=== PATIENT | male | born 2005 | race Caucasian/White ===

== ENCOUNTER 2024-05-28 13:30 | Inpatient (IN) ==
[2024-05-28] MEDS: SODIUM CHLORIDE 0.9% 1,000 ML IV ONE (14:28)
--- NOTE | 2024-05-28 14:28 | Emergency Department Note ---
Impression & Plan Abscess, periappendiceal, Appendicitis, Abdominal pain, RLQ ED Provider Note NAME: KAYDEN TALAVERA AGE: 19 SEX: M : 2005 ARRIVES VIA: Walk-In INFORMANT: Patient, parents ED PROVIDER(S): Param Grande MD CHIEF COMPLAINT: Abdominal pain, abnormal outpatient CAT scan, outpatient referral MEDICAL DECISION MAKING: Patient presents due to concern for right lower abdominal pain with outpatient CT scan concerning for ruptured appendicitis and periappendiceal abscess. IV was established and blood work was obtained. CT had been obtained at [facility] prior to arrival. I did speak with the community service organization director in order to obtain the imaging as well as the report. I did speak with on-call general surgery Dr. Azar. Patient was ordered IV Zosyn blood cultures and IV fluids. Patient with a white count of 15 with a normal H&H and platelet count. The patient's kidney function is unremarkable. Bilirubin is 6.7. LFTs unremarkable Pro-Tanner not elevated. After further discussion with Dr. Azar he will be admitted for antibiotic treatment does not believe the patient would require percutaneous drainage. Appendiceal abscess given how small it is currently. Patient was admitted to the general surgery service. Discussion w/ other healthcare providers: Dr. Azar general surgery Prior /Outside records reviewed: I reviewed the patient's outpatient CT report which showed ruptured appendicitis with periappendiceal abscess Differential diagnosis: Appendicitis, testicular torsion, UTI, diverticulitis, obstruction, renal colic, mesenteric adenitis, enteririts, PUD, pancreatitis, biliary pathology, hernia, volvulus, constipation, as well as other pathologies were considered. Diagnostics, as interpreted by me: ECG: None Cardiac monitoring: An order was placed for continuous cardiac monitoring. The monitor shows a rate of 92 with sinus rhythm. Patient was placed on pulse oximetry Medical decision rules: None Imaging studies: I informally interpreted the patient's CT abdomen pelvis does show periappendiceal abscess with formal report to follow. HPI: Patient presents due to concern for abdominal pain and an outpatient CT that showed concern for acute appendicitis. The patient states that his symptoms began on Saturday or very mild in nature in the right lower quadrant but seem to worsen yesterday. The patient was seen by Dr. Carrera as an outpatient and referred for an outpatient CAT scan. The patient reportedly was called with the results but told not to come to [facility] as they did not have a surgeon present on campus. Patient was told that he had acute appendicitis. Patient denies any fevers or chills no falls or trauma. 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 No reported blood in the urine or stool. No nausea vomiting. Patient states that he has taken some Tylenol which she took while at the physician's office this morning. He had some mild improvement. PAST MEDICAL HISTORY: No pertinent past medical history PAST SURGICAL HISTORY: No pertinent past surgical history SOCIAL HISTORY: Denies alcohol tobacco or drug use. HOME MEDICATIONS: See Below ALLERGIES: See Below VITALS: See Below PHYSICAL EXAMINATION: GENERAL: NAD, non-toxic. EYE EXAM: Icteric conjunctiva bilaterally. PERRL, no anisocoria and EOM's grossly intact w/o pain. OROPHARYNX: Moist mucus membranes, grossly normal dentition. NECK: Trachea midline, no stridor. Supple, no nuchal rigidity, no adenopathy, non-tender. No signs of meningismus. FROM of the neck with good chin to chest and neck extension. LUNGS: Clear to auscultation. Normal chest wall mechanics. HEART: NSR, no MRG. ABDOMEN: Abdomen soft, right lower quadrant pain without left-sided pain, negative obturators, positive psoas, no masses, no rebound or guarding. BACK: No CVA TTP. SKIN: No rashes and no bruising. UPPER EXTREMITIES: Upper extremities are grossly normal. LOWER EXTREMITIES: Grossly normal, no edema. NEURO EXAM: A&O x3, cranial nerves II-XII grossly intact, normal speech, moves all 4 extremities. Past Med/Surg History Problem List (Updated 05/29/24 @ 08:39 by Param Grande MD) Abdominal pain, RLQ (Acute) Abscess, periappendiceal (Acute) Appendicitis (Acute) Social History Smoking Status: Never smoker Hx Alcohol Use: No Hx Substance Use: No Preferred Language: Swedish Communication Ability: Effective Economic History Teacher Required: No Beliefs That Will Affect Care: None Current Living Situation: Family Feels Safe at Home: Yes Safety Concerns: Feels Safe At This Time Assistive Devices: None Allergies Allergies Allergy/AdvReac Type Severity Reaction Status Date / Time No Known Allergies Allergy Unverified 05/28/24 15:20 Home Meds Home Medications Medication Instructions Recorded Confirmed No Known Home Medications 05/28/24 05/28/24 Results & Data (ED) Vital Signs Vital Signs - 24 hr 05/28/24 13:40 05/28/24 13:47 05/28/24 13:50 Temperature 37.4 C Temperature Source Temporal Artery Scan Pulse Rate 113 H 100 H Pulse Rate [Apical] Pulse Rate from SpO2 Sensor Pulse Rhythm Respiratory Rate 18 Respiratory Effort / Characteristics Non-Labored Spontaneous Respiratory Depth Normal Respiratory Pattern Blood Pressure 146/79 H 148/74 H Blood Pressure [Left Arm] Blood Pressure Mean 101 99 Blood Pressure Mean [Left Arm] Blood Pressure Position Sitting Pulse Oximetry 98 Oxygen Delivery Method Room Air Sepsis Recent Fever Within 48 Hours No Sepsis New/Unexplained Change in Mental Status No Sepsis Action Taken by Nursing No Action Required 05/28/24 13:55 05/28/24 14:00 05/28/24 14:12 Temperature Temperature Source Pulse Rate 106 H 94 H Pulse Rate [Apical] 98 H Pulse Rate from SpO2 Sensor 105 H 93 H Pulse Rhythm Respiratory Rate 20 18 14 Respiratory Effort / Characteristics Non-Labored Spontaneous Respiratory Depth Normal Respiratory Pattern Regular Blood Pressure 100/79 Blood Pressure [Left Arm] 148/74 H Blood Pressure Mean 86 Blood Pressure Mean [Left Arm] 98 Blood Pressure Position Pulse Oximetry 98 99 97 Oxygen Delivery Method Room Air Sepsis Recent Fever Within 48 Hours Sepsis New/Unexplained Change in Mental Status Sepsis Action Taken by Nursing 05/28/24 14:19 05/28/24 14:21 05/28/24 14:34 Temperature Temperature Source Pulse Rate 98 H 95 H Pulse Rate [Apical] Pulse Rate from SpO2 Sensor 95 H Pulse Rhythm Regular Respiratory Rate 20 14 Respiratory Effort / Characteristics Respiratory Depth Respiratory Pattern Blood Pressure 134/72 Blood Pressure [Left Arm] Blood Pressure Mean 93 Blood Pressure Mean [Left Arm] Blood Pressure Position Pulse Oximetry 98 98 Oxygen Delivery Method Room Air Sepsis Recent Fever Within 48 Hours Sepsis New/Unexplained Change in Mental Status Sepsis Action Taken by Nursing 05/28/24 14:36 05/28/24 14:45 05/28/24 14:51 Temperature Temperature Source Pulse Rate 91 H 92 H 92 H Pulse Rate [Apical] Pulse Rate from SpO2 Sensor Pulse Rhythm Respiratory Rate 16 15 18 Respiratory Effort / Characteristics Respiratory Depth Respiratory Pattern Blood Pressure Blood Pressure [Left Arm] Blood Pressure Mean Blood Pressure Mean [Left Arm] Blood Pressure Position Pulse Oximetry Oxygen Delivery Method Sepsis Recent Fever Within 48 Hours Sepsis New/Unexplained Change in Mental Status Sepsis Action Taken by Nursing 05/28/24 15:00 05/28/24 15:00 05/28/24 15:00 Temperature Temperature Source Pulse Rate 91 H Pulse Rate [Apical] Pulse Rate from SpO2 Sensor Pulse Rhythm Respiratory Rate 15 Respiratory Effort / Characteristics Respiratory Depth Respiratory Pattern Blood Pressure 122/68 122/68 Blood Pressure [Left Arm] Blood Pressure Mean 87 87 Blood Pressure Mean [Left Arm] Blood Pressure Position Pulse Oximetry 98 Oxygen Delivery Method Sepsis Recent Fever Within 48 Hours Sepsis New/Unexplained Change in Mental Status Sepsis Action Taken by Nursing 05/28/24 15:00 05/28/24 15:30 05/28/24 15:30 Temperature Temperature Source Pulse Rate 87 Pulse Rate [Apical] Pulse Rate from SpO2 Sensor Pulse Rhythm Respiratory Rate 15 Respiratory Effort / Characteristics Respiratory Depth Respiratory Pattern Blood Pressure 122/68 126/69 Blood Pressure [Left Arm] Blood Pressure Mean 87 89 Blood Pressure Mean [Left Arm] Blood Pressure Position Pulse Oximetry 97 Oxygen Delivery Method Sepsis Recent Fever Within 48 Hours Sepsis New/Unexplained Change in Mental Status Sepsis Action Taken by [facility] Medications Current Medication List: was personally reviewed by me Laboratory Data Attestation: I reviewed the patient's lab results. 05/29/24 05:44 05/29/24 05:44 Lab Results 05/28/24 Range/Units 13:52 WBC 15.60 H (4.8-10.8) K/ul RBC 5.60 (4.70-6.10) M/uL Hgb 15.9 (14.0-18.0) g/dl Hct 45.0 (42.0-52.0) % MCV 80.4 (80.0-100.0) fL MCH 28.4 (25.0-34.0) pg MCHC 35.3 (32.0-36.0) g/dL RDW Std Deviation 35.7 L (36.4-46.3) fL RDW Coeff of Martha 12.2 (11.5-14.5) % Plt Count 218 (130-400) K/uL MPV 9.2 L (9.4-12.4) fL Immature Gran % (Auto) 0.4 % Neut % (Auto) 86.3 % Lymph % (Auto) 5.4 % [place] % (Auto) 7.8 % Eos % (Auto) 0.0 % Baso % (Auto) 0.1 % Neut # (Auto) 13.45 H (1.40-6.50) K/uL Lymph # (Auto) 0.85 L (1.20-3.40) K/uL [place] # (Auto) 1.22 H (0.11-0.59) K/uL Eos # (Auto) 0.00 (0.00-0.50) K/uL Baso # (Auto) 0.01 (0.00-0.20) K/uL Immature Gran # (Auto) 0.07 (0.01-0.20) K/uL Sodium 132 L (136-145) mmol/L Potassium 4.1 (3.5-5.1) mmol/L Chloride 97 L (98-107) mmol/L Carbon Dioxide 26 (21-32) mmol/L Anion Gap 9 (3-11) BUN 11 (6-23) mg/dl Creatinine 0.74 (0.6-1.4) mg/dl Est Cr Clr Drug Dosing 165.9 ml/min eGFR 132.20 BUN/Creatinine Ratio 14.9 (10-20) Glucose 111 H (70-99(Fasting)) mg/dl Calcium 9.7 (8.6-10.3) mg/dl Total Bilirubin 6.7 H (0.2-1.0) mg/dl AST 27 (13-39) U/L ALT 25 (7-52) U/L Alkaline Phosphatase 73 (34-104) U/L Total Protein 7.6 (6.0-8.3) gm/dl Albumin 4.4 (3.4-5.0) gm/dl Globulin 3.2 (2.5-4.0) gm/dl Albumin/Globulin Ratio 1.4 (0.9-2) Lipase 26 (11-82) U/L Procalcitonin 0.30 (0-0.5) ng/ml Administered Medications Enoxaparin Sodium (Enoxaparin Inj 40 Mg/0.4 Ml Syr) 40 mg SQ Q24H [place] Stop: 06/27/24 17:29 Last Admin: 05/28/24 18:26 Dose: Not Given Documented By: OMID Piperacillin Sod/Tazobactam Sod (Zosyn) 4.5 gm in 100 mls @ 25 mls/hr IV Q8H [place]; Protocol Stop: 06/07/24 19:59 Last Admin: 05/29/24 04:50 Dose: 25 mls/hr Documented By: Infusion: 05/29/24 00:59 Dose: Infused Documented By: Admin: 05/28/24 20:59 Dose: 25 mls/hr Documented By: MILIND Discontinued Medications Piperacillin Sod/Tazobactam Sod (Zosyn) 4.5 gm in 100 mls @ 200 mls/hr IV NOW ONE; Protocol Stop: 05/28/24 14:41 Last Infusion: 05/28/24 15:15 Dose: Infused Documented By: [facility] Admin: 05/28/24 14:30 Dose: 200 mls/hr Documented By: [facility] Sodium Chloride (Nss) 1,000 mls @ 999 mls/hr IV .Q1H1M ONE Stop: 05/28/24 15:16 Last Infusion: 05/28/24 16:03 Dose: Infused Documented By: [facility] Admin: 05/28/24 14:28 Dose: 999 mls/hr Documented By: [facility] Discharge Plan Visit Data Chief Complaint: Abdominal Pain Stated Complaint: REF BY NIRANJAN SHEARER ABOUT TO BURST ED Provider: Param Grande Discharge Problem: Abscess, periappendiceal, Appendicitis, Abdominal pain, RLQ Patient Disposition: Admitted As Inpatient Discharge Instructions Interventions: ED Discharge Assessment Last Done: 05/28/24 16:25 Discharge Problem: Appendicitis Qualifiers: Appendicitis type: acute appendicitis Acute appendicitis type: with localized peritonitis Appendicitis gangrene presence: without gangrene Appendicitis perforation presence: with perforation Appendicitis abscess presence: with abscess Qualified Code(s): K35.33 - Acute appendicitis with perforation, localized peritonitis, and gangrene, with abscess
[2024-05-28] MEDS: PIPERACILLIN/TAZOBACTAM 4.5 GM/100 ML BAG IV ONE (14:30)
[2024-05-28 14:36] LABS: Basophils # (auto) 0.01 K/uL (0.00-0.20); Basophils % (auto) 0.1 %; Hemoglobin 15.9 g/dl (14.0-18.0); Immature Granulocytes # (auto) 0.07 K/uL (0.01-0.20); Immature Granulocytes % (auto) 0.4 %; Lymphocytes # (auto) 0.85 K/uL (1.20-3.40); Lymphocytes % (auto) 5.4 %; Mean Corpuscular Hemoglobin 28.4 pg (25.0-34.0); Mean Corpuscular Hgb Conc 35.3 g/dL (32.0-36.0); Mean Corpuscular Volume 80.4 fL (80.0-100.0); Mean Platelet Volume 9.2 fL (9.4-12.4); Monocytes # (auto) 1.22 K/uL (0.11-0.59); Monocytes % (auto) 7.8 %; Neutrophils # (auto) 13.45 K/uL (1.40-6.50); Neutrophils % (auto) 86.3 %; Platelet Count 218 K/uL (130-400); RDW Coefficient of Variation 12.2 % (11.5-14.5); RDW Standard Deviation 35.7 fL (36.4-46.3)
[2024-05-28 14:52] LABS: Albumin Globulin Ratio 1.4 (0.9-2); Albumin Level 4.4 gm/dl (3.4-5.0); BUN Creatinine Ratio 14.9 (10-20); Bilirubin,Total 6.7 mg/dl (0.2-1.0); Calcium 9.7 mg/dl (8.6-10.3); Creatinine Clr Calc Pharmacy 165.9 ml/min; Globulin 3.2 gm/dl (2.5-4.0); Potassium 4.1 mmol/L (3.5-5.1); Total Protein 7.6 gm/dl (6.0-8.3)
--- NOTE | 2024-05-28 15:31 | History & Physical Report ---
Date of Service May 28, 2024 Assessment & Plan (1) Appendicitis: Plan 19-year-old gentleman with perforated appendicitis. Reviewed the CT scan. There is a 2.3 cm abscess. We will plan for conservative management with IV antibiotics. We will consult with IR to determine whether this abscess can be drained. He will be placed on IV Zosyn and IV fluids. NPO. History of Present Illness Primary Care Provider: NO PCP 19-year-old presents with a weeklong history of right sided abdominal pain. The pain significantly worsened yesterday. It is associated with nausea and vomiting. He vomited twice yesterday. He does endorse a fever today. He has been having some diarrhea. He has not had a significant appetite. He was seen and sent for CT scan which demonstrated a perforated appendicitis with appendicolith and walled off 2 cm abscess. Allergies Allergy/AdvReac Type Severity Reaction Status Date / Time No Known Allergies Allergy Unverified 05/28/24 15:20 Home Medications Medication Instructions Recorded Confirmed Type No Known Home Medications 05/28/24 05/28/24 History Past Med/Surg History Problem List (Updated 05/28/24 @ 15:36 by Ferny Azar MD) Appendicitis Social History Smoking Status: Never smoker Preferred Language: Pashto Feels Safe at Home: Yes Review of Systems Review of Systems: All systems reviewed & are unremarkable except as noted in HPI & below Physical Exam Constitutional: WD/WN, vitals as above Eyes: PERRL, conjunctivae normal, anicteric sclerae Neck: trachea midline, no thyromegaly Respiratory: normal respiratory effort; no respiratory distress and no labored breathing Cardiovascular: Rate/Rhythm: regular rate and regular rhythm Gastrointestinal (Abdomen): Inspection/Auscultation: abdomen normal to inspection and + abdomen distended ( Mild distention) Percussion/Palpation: + abdomen tender ( right-sided TTP) and abdomen soft; no guarding and abdomen not rigid Skin: no rashes, warm and dry Psychiatric: A+Ox3, euthymic affect Results & Data Results & Data Vital Signs (Past 12 Hours) Vital Signs Temp Pulse Pulse Resp BP BP Pulse Ox 05/28/24 15:00 122/68 05/28/24 15:00 91 H 15 98 05/28/24 15:00 122/68 11/28/24 14:51 92 H 18 05/28/24 14:45 92 H 15 05/28/24 14:36 91 H 16 05/28/24 14:34 134/72 05/28/24 14:21 95 H 14 98 05/28/24 14:19 98 H 20 98 05/28/24 14:12 94 H 14 97 05/28/24 14:00 106 H 18 100/79 99 05/28/24 13:55 98 H 20 148/74 H 98 05/28/24 13:50 100 H 05/28/24 13:47 148/74 H 05/28/24 13:40 37.4 C 113 H 18 146/79 H 98 O2 Del Method 05/28/24 15:00 05/28/24 15:00 05/28/24 15:00 05/28/24 14:51 05/28/24 14:45 05/28/24 14:36 05/28/24 14:34 05/28/24 14:21 05/28/24 14:19 Room Air 05/28/24 14:12 05/28/24 14:00 05/28/24 13:55 Room Air 05/28/24 13:50 05/28/24 13:47 05/28/24 13:40 Room Air Laboratory Results 05/28/24 Range/Units 13:52 WBC 15.60 H (4.8-10.8) K/ul RBC 5.60 (4.70-6.10) M/uL Hgb 15.9 (14.0-18.0) g/dl Hct 45.0 (42.0-52.0) % MCV 80.4 (80.0-100.0) fL MCH 28.4 (25.0-34.0) pg MCHC 35.3 (32.0-36.0) g/dL RDW Std Deviation 35.7 L (36.4-46.3) fL RDW Coeff of Martha 12.2 (11.5-14.5) % Plt Count 218 (130-400) K/uL MPV 9.2 L (9.4-12.4) fL Immature Gran % (Auto) 0.4 % Neut % (Auto) 86.3 % Lymph % (Auto) 5.4 % [place] % (Auto) 7.8 % Eos % (Auto) 0.0 % Baso % (Auto) 0.1 % Neut # (Auto) 13.45 H (1.40-6.50) K/uL Lymph # (Auto) 0.85 L (1.20-3.40) K/uL [place] # (Auto) 1.22 H (0.11-0.59) K/uL Eos # (Auto) 0.00 (0.00-0.50) K/uL Baso # (Auto) 0.01 (0.00-0.20) K/uL Immature Gran # (Auto) 0.07 (0.01-0.20) K/uL Sodium 132 L (136-145) mmol/L Potassium 4.1 (3.5-5.1) mmol/L Chloride 97 L (98-107) mmol/L Carbon Dioxide 26 (21-32) mmol/L Anion Gap 9 (3-11) BUN 11 (6-23) mg/dl Creatinine 0.74 (0.6-1.4) mg/dl Est Cr Clr Drug Dosing 165.9 ml/min eGFR 132.20 BUN/Creatinine Ratio 14.9 (10-20) Glucose 111 H (70-99(Fasting)) mg/dl Calcium 9.7 (8.6-10.3) mg/dl Total Bilirubin 6.7 H (0.2-1.0) mg/dl AST 27 (13-39) U/L ALT 25 (7-52) U/L Alkaline Phosphatase 73 (34-104) U/L Total Protein 7.6 (6.0-8.3) gm/dl Albumin 4.4 (3.4-5.0) gm/dl Globulin 3.2 (2.5-4.0) gm/dl Albumin/Globulin Ratio 1.4 (0.9-2) Lipase 26 (11-82) U/L Procalcitonin 0.30 (0-0.5) ng/ml (1) Appendicitis Appendicitis type: acute appendicitis Acute appendicitis type: with localized peritonitis Appendicitis gangrene presence: unspecified whether gangrene present Appendicitis perforation presence: with perforation Appendicitis abscess presence: with abscess Qualified Code(s): K35.33 - Acute appendicitis with perforation, localized peritonitis, and gangrene, with abscess
[2024-05-28] MEDS ORDERED: PROMETHAZINE 12.5 MG/50.5 ML BAG IV PRN (17:09)
[2024-05-28] MEDS ORDERED: MoRPHine SULFATE 4 MG/ML 1 ML CARP\\VIAL IV PRN (17:09)
[2024-05-28] MEDS ORDERED: MoRPHine SULFATE 2 MG/ML CARP IV PRN (17:09)
[2024-05-28] MEDS ORDERED: KETOROLAC 30 MG/ML VIAL IV PRN (17:09)
[2024-05-28] MEDS ORDERED: diphenhydrAMINE Capsule 25 MG CAP PO PRN (17:09)
[2024-05-28] MEDS ORDERED: ONDANSETRON INJ 2 MG/ML 2 ML VIAL IV PRN (17:09)
[2024-05-28] MEDS: ENOXAPARIN INJ 40 MG/0.4 ML SYR SQ SCH (18:26)
[2024-05-28] MEDS: PIPERACILLIN/TAZOBACTAM 4.5 GM/100 ML BAG IV SCH (20:59)
[2024-05-29 05:50] LABS: Appearance Urine Clear (Clear); Bacteria Urine Automated None Seen (None Seen); Bilirubin Urine Negative (Negative); Blood Urine Negative (Negative); Cast Urine Automated 0-2 /lpf (0-2); Color Urine Dark Yellow; Epithelial Cell Urine Auto 0-2 /hpf (0-2); Glucose Urine UA Negative (Negative); Ketones Urine 2+ (Negative); Leukocyte Esterase Urine Negative (Negative); Nitrite Urine Negative (Negative); Protein Urine 1+ (Negative); Specific Gravity Urine 1.045 (1.000-1.030); Urobilinogen Urine Negative (Negative); WBC Urine Automated 0-5 /hpf (0-5); pH Urine 5.5 (4.5-7.5)
[2024-05-29 06:03] LABS: Basophils # (auto) 0.01 K/uL (0.00-0.20); Basophils % (auto) 0.1 %; Hematocrit (blood only) 40.3 % (42.0-52.0); Hemoglobin 13.9 g/dl (14.0-18.0); Immature Granulocytes # (auto) 0.04 K/uL (0.01-0.20); Immature Granulocytes % (auto) 0.3 %; Lymphocytes # (auto) 0.87 K/uL (1.20-3.40); Lymphocytes % (auto) 7.4 %; Mean Corpuscular Hemoglobin 28.1 pg (25.0-34.0); Mean Corpuscular Hgb Conc 34.5 g/dL (32.0-36.0); Mean Corpuscular Volume 81.6 fL (80.0-100.0); Mean Platelet Volume 8.9 fL (9.4-12.4); Monocytes # (auto) 1.03 K/uL (0.11-0.59); Monocytes % (auto) 8.7 %; Neutrophils # (auto) 9.85 K/uL (1.40-6.50); Neutrophils % (auto) 83.5 %; Platelet Count 183 K/uL (130-400); RDW Coefficient of Variation 12.4 % (11.5-14.5); RDW Standard Deviation 36.7 fL (36.4-46.3); Red Blood Count 4.94 M/uL (4.70-6.10)
[2024-05-29 06:21] LABS: Albumin Globulin Ratio 1.3 (0.9-2); Albumin Level 3.8 gm/dl (3.4-5.0); BUN Creatinine Ratio 17.3 (10-20); Bilirubin,Total 4.4 mg/dl (0.2-1.0); Calcium 9.1 mg/dl (8.6-10.3); Creatinine Clr Calc Pharmacy 160.2 ml/min; Globulin 2.9 gm/dl (2.5-4.0); Potassium 4.1 mmol/L (3.5-5.1); Total Protein 6.7 gm/dl (6.0-8.3)
--- NOTE | 2024-05-29 09:35 | Surgery Progress Note ---
Date of Service May 29, 2024 Assessment & Plan (1) Abscess, periappendiceal: Plan: afebrile con't IV zosyn begin diet good progress Admission and Anticipated Discharge Date Admission Date: May 28, 2024 Subjective pain about the same not taking pain meds hungry no fevers Review of Systems Constitutional: no fever and no chills Respiratory: no cough and no dyspnea Cardiovascular: no chest pain Gastrointestinal: + abdominal pain; no nausea, no vomiting and no change in bowel habits Neurologic: no localized weakness Psychiatric: no behavioral changes Hematologic / Lymphatic: no easy bleeding and no easy bruising Physical Exam Constitutional: WD/WN, vitals as above Respiratory: normal respiratory effort, lungs clear to auscultation Cardiovascular: RRR, no murmur, no edema Gastrointestinal (Abdomen): Inspection/Auscultation: abdomen normal to inspection and normal bowel sounds; abdomen not distended and no abdominal surgical scar Percussion/Palpation: + abdomen tender and abdomen soft; no guarding and abdomen not rigid Musculoskeletal: Head/Neck/Chest: normocephalic and head atraumatic Skin: no rashes, warm and dry Results & Data Vital Signs (Past 12 Hours) Vital Signs Temp Pulse Resp BP Pulse Ox O2 Del Method 05/29/24 06:44 37.3 C 93 H 16 117/68 96 Room Air
[2024-05-30 06:10] LABS: Basophils # (auto) 0.01 K/uL (0.00-0.20); Basophils % (auto) 0.1 %; Hematocrit (blood only) 39.1 % (42.0-52.0); Hemoglobin 13.5 g/dl (14.0-18.0); Immature Granulocytes # (auto) 0.02 K/uL (0.01-0.20); Immature Granulocytes % (auto) 0.2 %; Lymphocytes % (auto) 12.3 %; Mean Corpuscular Hemoglobin 28.3 pg (25.0-34.0); Mean Corpuscular Hgb Conc 34.5 g/dL (32.0-36.0); Monocytes # (auto) 0.91 K/uL (0.11-0.59); Monocytes % (auto) 9.3 %; Neutrophils % (auto) 78.1 %; Platelet Count 205 K/uL (130-400); RDW Coefficient of Variation 12.2 % (11.5-14.5); RDW Standard Deviation 36.8 fL (36.4-46.3); Red Blood Count 4.77 M/uL (4.70-6.10); White Blood Count 9.74 K/ul (4.8-10.8)
[2024-05-30 06:29] LABS: Albumin Globulin Ratio 1.3 (0.9-2); Albumin Level 3.6 gm/dl (3.4-5.0); BUN Creatinine Ratio 14.1 (10-20); Bilirubin,Total 2.9 mg/dl (0.2-1.0); Calcium 8.9 mg/dl (8.6-10.3); Globulin 2.8 gm/dl (2.5-4.0); Potassium 4.1 mmol/L (3.5-5.1); Total Protein 6.4 gm/dl (6.0-8.3)
--- NOTE | 2024-05-30 10:21 | Surgery Progress Note ---
Date of Service May 30, 2024 Assessment & Plan (1) Abscess, periappendiceal: Plan: low grade fever WBC normal clinically improving possible discharge tomorrow if con't to do well Admission and Anticipated Discharge Date Admission Date: May 28, 2024 Subjective T max 37.6 afebrile currently taking po well pain better no complaints Review of Systems Constitutional: + fever; no chills and no anorexia Respiratory: no cough and no dyspnea Cardiovascular: no chest pain Gastrointestinal: + abdominal pain; no nausea, no vomiting and no change in bowel habits Genitourinary: no dysuria Neurologic: no localized weakness and no generalized weakness Psychiatric: no behavioral changes Hematologic / Lymphatic: no easy bleeding and no easy bruising Physical Exam Constitutional: WD/WN, vitals as above Neck: trachea midline Respiratory: normal respiratory effort, lungs clear to auscultation Cardiovascular: RRR, no murmur, no edema Gastrointestinal (Abdomen): Inspection/Auscultation: abdomen normal to inspection and normal bowel sounds; abdomen not distended Percussion/Palpation: + abdomen tender and abdomen soft; no guarding and abdomen not rigid Musculoskeletal: Head/Neck/Chest: normocephalic and head atraumatic Skin: no rashes, warm and dry Results & Data Vital Signs (Past 12 Hours) Vital Signs Temp Pulse Resp BP Pulse Ox O2 Del Method 05/30/24 08:10 36.9 C 84 17 119/69 99 Room Air
[2024-05-31 06:20] LABS: Basophils # (auto) 0.01 K/uL (0.00-0.20); Basophils % (auto) 0.1 %; Hematocrit (blood only) 37.3 % (42.0-52.0); Immature Granulocytes # (auto) 0.03 K/uL (0.01-0.20); Immature Granulocytes % (auto) 0.3 %; Lymphocytes # (auto) 1.06 K/uL (1.20-3.40); Lymphocytes % (auto) 12.1 %; Mean Corpuscular Hemoglobin 28.4 pg (25.0-34.0); Mean Corpuscular Hgb Conc 34.9 g/dL (32.0-36.0); Mean Corpuscular Volume 81.6 fL (80.0-100.0); Mean Platelet Volume 8.8 fL (9.4-12.4); Monocytes # (auto) 0.75 K/uL (0.11-0.59); Monocytes % (auto) 8.6 %; Neutrophils # (auto) 6.91 K/uL (1.40-6.50); Neutrophils % (auto) 78.9 %; Platelet Count 213 K/uL (130-400); RDW Coefficient of Variation 12.1 % (11.5-14.5); RDW Standard Deviation 36.2 fL (36.4-46.3); Red Blood Count 4.57 M/uL (4.70-6.10); White Blood Count 8.76 K/ul (4.8-10.8)
[2024-05-31 06:41] LABS: Albumin Globulin Ratio 1.2 (0.9-2); Albumin Level 3.6 gm/dl (3.4-5.0); BUN Creatinine Ratio 15.1 (10-20); Bilirubin,Total 1.8 mg/dl (0.2-1.0); Creatinine Clr Calc Pharmacy 164.6 ml/min; Globulin 2.9 gm/dl (2.5-4.0); Potassium 3.9 mmol/L (3.5-5.1); Total Protein 6.5 gm/dl (6.0-8.3)
[2024-05-31 07:13] VITALS: BP 104/63; PULSE 74; RESP 14; TEMP 98.2; O2SAT 97
--- NOTE | 2024-05-31 10:04 | Discharge Summary ---
Date of Service May 31, 2024 Admission HPI Per Admitting Provider 19-year-old presents with a weeklong history of right sided abdominal pain. The pain significantly worsened yesterday. It is associated with nausea and vomiting. He vomited twice yesterday. He does endorse a fever today. He has been having some diarrhea. He has not had a significant appetite. He was seen and sent for CT scan which demonstrated a perforated appendicitis with appendicolith and walled off 2 cm abscess. Admission Exam Per Admitting Provider Constitutional: WD/WN, vitals as above Eyes: PERRL, conjunctivae normal, anicteric sclerae Neck: trachea midline, no thyromegaly Respiratory: normal respiratory effort; no respiratory distress and no labored breathing Cardiovascular: Rate/Rhythm: regular rate and regular rhythm Gastrointestinal (Abdomen): Inspection/Auscultation: abdomen normal to inspection and + abdomen distended ( Mild distention) Percussion/Palpation: + abdomen tender ( right-sided TTP) and abdomen soft; no guarding and abdomen not rigid Skin: no rashes, warm and dry Psychiatric: A+Ox3, euthymic affect Principal Diagnosis Perforated appendicitis Discharge Exam Constitutional: WD/WN, vitals as above Eyes: PERRL, conjunctivae normal, anicteric sclerae Neck: trachea midline, no thyromegaly Respiratory: normal respiratory effort; no respiratory distress and no labored breathing Cardiovascular: Rate/Rhythm: regular rate and regular rhythm Gastrointestinal (Abdomen): Inspection/Auscultation: abdomen normal to inspection and soft, non-tender Skin: no rashes, warm and dry Psychiatric: A+Ox3, euthymic affect Discharge Data Allergies Allergy/AdvReac Type Severity Reaction Status Date / Time No Known Allergies Allergy Unverified 05/28/24 15:20 Consultations 05/28/24 14:20 Consult General Surgery Stat 05/28/24 15:08 ED Decision to Admit Stat Hospital Course (1) Abscess, periappendiceal: This is a 19-year-old male admitted through the ED with a perforated appendicitis. He had a walled off phlegmon which was treated conservatively. He was placed on IV antibiotics. He progressed with his pain he was afebrile and did well. He was tolerating a regular diet and discharged home on an oral antibiotic regimen. He will follow-up with with surgeon in 1 week. Total Time Total Time Spent Total Time Spent (In Minutes): 15 min Total Time Includes: Examination of the Patient, Discharge Planning and Medication Reconciliation Discharge Plan Discharge Items Patient Disposition: Home - Self-Care Reason For Visit: PERFORATED APPENDICITIS Discharge Diagnosis: PERFORATED APPENDICITIS Activity: Per Instructions section Lifting: No more than 50 pounds Bathing: No limitations Sexual Activity: When tolerated Exercise/Sports: Wait until after follow-up appointment Driving/Machine Use: No limitations Weightbearing: Full weightbearing Non-emergency contact: Surgeon Call non-emergency contact if: your pain is concerning for you and your temperature is above 101.5 Follow-up/Referrals: PCP,NO [Primary Care Provider] - Diet: Regular Addtl Attending Provider Instructions: Post-Surgical ~Discharge Instructions Activity Recommendations: - Lifting limitation: (20 pounds for 2 weeks), - Exercise/sex/sports limit: (nonstrenuous for 2 weeks), - Driving or machine use limit: (none after 3 days post-op as long as pain free and no longer taking narcotic pain medication), - Shower/bathe limit: no limitations - Call the surgeon's office with any questions or concerns - ; ex. temperature higher than 101.5 degrees F or pain Diet: - Resume previous diet, regular as tolerated. Medications: - Resume previous medications unless instructed otherwise by your surgeon. - Finish antibiotic regimen Follow-up: - If not already scheduled, please call the office to schedule a two week follow-up appointment. Office number Pending Studies at Discharge: No Stand-Alone Forms: [facility] [employer], Smoking Cessation Medications and DC Order Prescriptions: New amoxicillin-pot clavulanate [Augmentin] 500-125 mg tablet 1 tab PO BID Qty: 20 0RF Discharge Orders: Discharge Order (Routine); Ordered 05/31/24 Ordered By: Hill Davis Admission Data Admit Date/Time: 05/28/24 15:44 Attending Provider: Ferny Azar Admit Provider: Ferny Azar Primary Care Provider: PCP,NO Other Providers: Ferny Azar
== END 2024-05-31 11:30 | disposition home or self-care (01) | DRG 373 ==
LOC: ED 13:30 → 3N 15:44
DX: K35.33 Acute appendicitis with perforation, localized peritonitis, and gangrene, with abscess